=== PATIENT | female | born 2000 | race Caucasian/White ===

== ENCOUNTER 2020-07-17 20:14 | Emergency (ER) | payer OTHER ==
[~2020-07-17] VITALS: Ht 157.5 cm; Wt 59.0 kg
[2020-07-17 21:12] VITALS: BP 126/81
[2020-07-17] MEDS ORDERED: TETANUS, DIPHTHERIA, PERTUSSIS VAC/PF 0.5ML (>7YR OLD) IM ONE (22:15)
[2020-07-17] MEDS ORDERED: HYDROCODONE/ACETAMINOPHEN 10/325MG TABLET PO ONE (22:15)
== END 2020-07-17 23:23 | disposition home or self-care (01) ==
LOC: ER 21:13
DX: M79.672 Pain in left foot (principal); Z88.0 Allergy status to penicillin
CPT/HCPCS: 73660; 90471; 90715; 99283